=== PATIENT | male | born 1960 | race Caucasian/White ===

== ENCOUNTER 2019-04-22 09:47 | Emergency (ER) | payer BC, OTHER ==
[~2019-04-22] VITALS: Ht 190.5 cm; Wt 108.9 kg
[2019-04-22] MEDS ORDERED: COZAAR 25 MG TA25 M1 PO (10:33)
[2019-04-22] MEDS ORDERED: FLOMAX0.4 MG PO (10:34)
[2019-04-22] MEDS ORDERED: CELEXA10 MG PO (10:34)
[2019-04-22] MEDS ORDERED: TRULICITY0.75 MG/0. SUBQ (10:34)
[2019-04-22] MEDS ORDERED: LIPITOR 20 MG T20 M1 PO (10:34)
[2019-04-22] MEDS ORDERED: NORFLEX100 MG PO (10:55)
[2019-04-22] MEDS ORDERED: NORCO 7.5-3251 EACH PO (10:55)
[2019-04-22] MEDS ORDERED: NAPROSYN500 MG PO (10:55)
[2019-04-22 11:01] VITALS: BP 130/81
== END 2019-04-22 11:02 | disposition home or self-care (01) ==
LOC: ER 09:47
DX: S39.012A Strain of muscle, fascia and tendon of lower back, initial encounter (principal); E78.5 Hyperlipidemia, unspecified; I10 Essential (primary) hypertension; X50.1XXA Overexertion from prolonged static or awkward postures, initial encounter; Y92.89 Other specified places as the place of occurrence of the external cause; Y93.89 Activity, other specified; Y99.8 Other external cause status